=== PATIENT | female | born 1985 | race Caucasian/White ===

== ENCOUNTER 2020-12-14 16:29 | Emergency (ER) | payer OTHER ==
[2020-12-14 16:38] VITALS: TEMP 97; BMI 34.3
[2020-12-14] MEDS ORDERED: CLINDAMYCIN HCL 300 MG CAPSULE PO ONE (17:38)
[2020-12-14] MEDS ORDERED: CLINDAMYCIN 600MG PREMIX IVPB 600 MG/50 ML BAG IVPB ONE ×2 (17:56→18:01)
[2020-12-14 18:40] LABS: BASO % 0.2 % (0-2.0); EOS % 2.1 % (0-4.5); HEMATOCRIT 26.3 % (32.4-45.2); HEMOGLOBIN 8.2 GM/dL (10.7-15.3); LYMPH % 21.2 % (8-40); MCHC 31.3 g/dl (32.0-36.0); MEAN CELL VOLUME 61.9 fl (80-96); MEAN PLT VOLUME 8.7 fl (7.5-11.1); MONO % 6.9 % (3.8-10.2); NEUT % 69.6 % (42.8-82.8); PLATELET COUNT 250 10^3/uL (134-434); RBC 4.25 M/mm3 (3.60-5.2); RDW 18.7 % (11.6-15.6); WHITE BLOOD COUNT 8.6 K/mm3 (4.0-10.0)
[2020-12-14 18:47] LABS: MCH 19.4 pg (25.7-33.7)
[2020-12-14 18:53] LABS: CALCIUM 8.9 mg/dL (8.5-10.1)
[2020-12-14 18:54] LABS: ALBUMIN 3.3 g/dl (3.4-5.0); BLOOD UREA NITROGEN 6.6 mg/dL (7-18)
[2020-12-14 18:57] LABS: CREATININE 0.7 mg/dL (0.55-1.3)
[2020-12-14 18:59] LABS: BILIRUBIN,TOTAL 0.2 mg/dL (0.2-1); TOT PROT 7.4 g/dl (6.4-8.2)
[2020-12-14 19:43] LABS: ANISOCYTOSIS 2+; MACROCYTOSIS 1+; OVALOCYTE 1+
[2020-12-14] MEDS ORDERED: KETOROLAC TROMETHAMINE 30 MG/1 ML VIAL IVPUSH ONE (20:30)
[2020-12-14] MEDS ORDERED: KETOROLAC TROMETHAMINE 30 MG/1 ML VIAL ONE (20:57)
[2020-12-14 21:28] VITALS: BP 113/80; PULSE 70
== END 2020-12-14 21:28 | disposition home or self-care (01) ==
LOC: JER 16:29
PROC: 3E033GC Introduction of Other Therapeutic Substance into Peripheral Vein, Percutaneous Approach (ICD-10-PCS; principal; 2020-12-14)
DX: K04.7 Periapical abscess without sinus (principal); L03.213 Periorbital cellulitis; L03.211 Cellulitis of face
CPT/HCPCS: 36415; 70481-TC; 80053; 84703; 85025; 96365; 96375; 99285-25; Q9967

== ENCOUNTER 2023-10-06 16:50 | Emergency (ER) | payer OTHER ==
[2023-10-06 17:21] VITALS: BP 146/81; PULSE 85; RESP 19; TEMP 98.6; BMI 34.0
[2023-10-06] MEDS ORDERED: ACETAMINOPHEN 500 MG TABLET (FP) ONE (18:07)
[2023-10-06] MEDS: ACETAMINOPHEN 500 MG TABLET (FP) PO ONE (18:13)
[2023-10-06 19:38] LABS: HIV INTERPRETATION NEGATIVE (NEGATIVE)
== END 2023-10-06 18:17 | disposition home or self-care (01) ==
LOC: JERFT 16:50
DX: S90.812A Abrasion, left foot, initial encounter (principal); W26.8XXA Contact with other sharp object(s), not elsewhere classified, initial encounter
CPT/HCPCS: 36415; 86803; 87389; 99283-25